=== PATIENT | female | born 1990 | race Caucasian/White ===

== ENCOUNTER 2024-10-16 09:47 | Outpatient (REF) | payer OTHER, SELFPAY ==
--- NOTE | ~2024-10-16 | XR_ITS ---
EXAMINATION: XR KNEE, LEFT CLINICAL INFORMATION: M25.562 - Pain in left knee COMPARISON: None available. TECHNIQUE: Three views of the left knee. FINDINGS: There is mild narrowing of the medial greater than lateral joint space. There are small marginal osteophytes 3 compartments. There are no soft tissue calcifications. There is a small amount joint fluid. XR/XR knee LT 3V IMPRESSION: Mild osteoarthritis. Electronically signed by: Nigel Delarosa MD 10/16/2024 10:09 AM EDT
== END 2024-10-16 09:48 | disposition home or self-care (01) ==
LOC: HO.HOSX 09:47
PROVIDERS: Visit Provider Orthopaedic Surgery
DX: S83.242A Other tear of medial meniscus, current injury, left knee, initial encounter (principal); M25.562 Pain in left knee; X58.XXXA Exposure to other specified factors, initial encounter; Z79.899 Other long term (current) drug therapy
CPT/HCPCS: 73562

== ENCOUNTER 2024-10-16 09:54 | Outpatient (AMB) | payer OTHER, SELFPAY ==
--- NOTE | 2024-10-16 10:06 | MHC.OFFVIS ---
Intake Visit Reasons: Left knee pain Intake Note: Nikia is a 34 year old female who presents with complaints of left knee pain. She describes her pain as sharp in nature. She has failed the last 6 weeks of conservative treatment which has included meloxicam, a knee brace and a home exercise program. Her symptoms began approximately 6 months ago. Allergies amoxicillin Allergy (Mild, Verified 10/16/24 10:09) Hives Medication List - Last Reconciled 10/16/24 by Frankie Mcmullen MD bupropion HCl XL 300 mg PO DAILY bupropion HCl XL 150 mg PO DAILY buspirone 5 mg PO BID Physical Exam Extrem Other: Left knee examination shows a minimal effusion, mild crepitus with range of motion, tenderness along her medial joint line, positive Garett's test Results Reviewed Results Reviewed: X-rays of the patient's left knee show mild diffuse joint space narrowing consistent with early osteoarthritis, no acute bony abnormalities Assessment & Plan Assessment & Plan (1) Tear of medial meniscus of left knee: Code(s): S83.242A - Other tear of medial meniscus, current injury, left knee, initial encounter Category: Medical (2) Left knee pain: Code(s): M25.562 - Pain in left knee Category: Medical Plan Mr. Roblero presents with left knee due to early osteoarthritis as well as possible tearing of her medial meniscus. Thus, I will send the patient for an MRI of her left knee for further evaluation. I will see her back once the MRI is completed to discuss the findings and treatment options. Feel free to call me at any time should questions regarding her orthopedic management arise. I spent 21 minutes in reviewing the patient's records and imaging studies, seeing the patient and documenting in the medical record. Orders: Orders XR knee LT 3V Today M25.562 - Pain in left knee MR knee LT wo con 10/17/24 S83.242A - Other tear of medial meniscus, current injury, left knee, initial encounter Coding Level of Care Code New Pt Level 3 (98637) Complex EM visit Add On G2211 Diagnoses Tear of medial meniscus of left knee S83.242A Left knee pain M25.562
--- OUTSIDE RECORDS SUMMARY | 2024-10-16 10:44 | XMS_ITS | Data Portability ---
Author Organization [facility], Main Office Address [address] [facility] [address] [place] [address] Care Team Providers Care Film Composer Name Role Phone VELMA PARRY Toxicologist OLIVERIO FULLER Primary Care Provider Assessment Encounter Date Assessment Date Assessment LastModified by Organization Details LastModified Time 05/31/2023 05/31/2023 This service was provided using telemedicine. Patient consented to video & audio visit Patient was located in the [facility]. Provider was located in the office. No other persons participated in the telemedicine visit except for the patient unless otherwise indicated here. Total time of visit was 10 minutes. pmadden Not available 05/31/2023 09:32:34 03/13/2024 03/13/2024 This service was provided using telemedicine. Patient consented to video & audio visit Patient was located in the [facility]. Provider was located in the office. No other persons participated in the telemedicine visit except for the patient unless otherwise indicated here. Total time of visit was 18 minutes. pmadden Not available 03/13/2024 16:13:32 10/02/2024 10/02/2024 This service was provided using telemedicine. Patient consented to telephone visit Patient was located other than home in the [facility]. Provider was located in the office. No other persons participated in the telemedicine visit except for the patient unless otherwise indicated here. Total time of visit was 11 minutes. pmadden Not available 10/02/2024 16:15:47 Plan of Treatment Reminders Order Date Submit Date Provider Last Modified By Organization Details Last Modified Time Details Appointments PE EST 2024 10:30A M Oliverio Fuller PA-C Not available Not available Not available Lab marcelinoami n D, 25-hyd cely, total, serum 2023 024 [email or web address], [address], [place], [address], 06/11/2024 10:31:51 HbA1c (hemog lobin A1c), blood 2023 024 [email or web address] (Centralized Electronic Ordering - All Locations), Patient Can Go To The Location Of Their Choice, [facility] 10/09/2024 09:54:00 lipid panel, serum 2023 024 [email or web address] (Centralized Electronic Ordering - All Locations), Patient Can Go To The Location Of Their Choice, [facility] 10/09/2024 09:54:00 CMP, serum or plasma 2023 024 [email or web address] (Centralized Electronic Ordering - All Locations), Patient Can Go To The Location Of Their Choice, [facility] 10/09/2024 09:54:00 Referral None record ed. Procedures None record ed. Surgeries None record ed. Imaging None record ed. Medication Orders Simpes se 0.15 mg-30 mcg (84)/1 0 mcg(7) tablet s,3 month dose pack 2024 025 [id number] [address] [facility] [place], [address], 10/02/2024 16:18:13 buprop ion HCl XL 150 mg 24 hr tablet , extend ed releas e 2024 025 [facility] #[id number], [address] [facility] [place], [address], 10/02/2024 16:18:13 meloxi cam 15 mg tablet 2024 025 [facility] #[id number], [address] [facility] [place], [address], 06/29/2024 09:05:24 buspir one 5 mg tablet 2023 024 [id number] [address] [facility] [place], [address], 03/13/2024 16:16:13 buprop ion HCl XL 450 mg 24 hr tablet , extend ed releas e 2023 024 [id number] [address] [facility] [place], [address], 03/15/2024 17:27:08 albute rol sulfat e HFA 90 mcg/ac tuatio n aeroso l inhale r [address] [id number] [address] [facility] [place], [address], 07/27/2023 10:10:07 flutic asone propio nell 50 mcg/ac tuatio n nasal spray, suspen le [id number] [address] [facility] [place], [address], 03/13/2024 15:28:32 buspir one 5 mg tablet 2023 024 [id number] [address] [place], [address], 05/31/2023 09:30:53 Patient TargetsNo targets recorded. Patient Instructions Encounter Date Encounter Id Patient Instructions Last Modified By Organization Details Last Modified Time 05/31/2023 [id number] prediabetes: car e instructions pmadden Not available 05/31/2023 09:34:24 eating healthy foods: care instructions pmadden Not available 05/31/2023 09:34:24 Medications (OTC , herbal therapies, supplements) reviewed and reconciled with patient and or caregiver, including potential side effects, drug interactions, instructions, and the consequences of not taking medication. Reviewed potential barriers to medication adherence, such as side effects from medication or cost of medication. pmadden Not available 05/31/2023 09:34:34 07/27/2023 [id number] cough: care instructions Not available 07/27/2023 10:08:36 seasonal allergies: care instructions Not available 07/27/2023 10:08:36 03/13/2024 [id number] prediabetes: car e instructions pmadden Not available 03/13/2024 16:16:10 eating healthy foods: care instructions pmadden Not available 03/13/2024 16:16:10 Medications (OTC , herbal therapies, supplements) reviewed and reconciled with patient and or caregiver, including potential side effects, drug interactions, instructions, and the consequences of not taking medication. Reviewed potential barriers to medication adherence, such as side effects from medication or cost of medication. pmadden Not available 03/13/2024 16:16:28 06/29/2024 [id number] knee pain or injury: care instructions Not available 06/29/2024 09:06:00 10/02/2024 [id number] prediabetes: car e instructions pmadden Not available 10/02/2024 16:18:06 eating healthy foods: care instructions pmadden Not available 10/02/2024 16:18:06 Medications (OTC , herbal therapies, supplements) reviewed and reconciled with patient and or caregiver, including potential side effects, drug interactions, instructions, and the consequences of not taking medication. Reviewed potential barriers to medication adherence, such as side effects from medication or cost of medication. Patient will follow up and keep appointment as scheduled. pmadden Not available 10/02/2024 16:18:51 Reason for Referral None Reported. Results Created Date Observation Date Name Description Value Unit Range Abnormal Flag Note LastModifiedBy Organization Detail LastModifiedTime 05/23/19 24 05/23/2023 HEMOG LOBIN A1C hemoglobin A1C 5.5 % (4.0-5 .6) MONIT ORING : In known diabe tic patie nts, hemog lobin A1c targe ts susan d be discu ssed with healt h care provi sarita. DIAGN OSTIC USE: The Ameri can Diabe gurmeet Assoc iatio n (ADA) and the World Healt h Organ izati on (WHO) recom mend the use of HbA1c to diagn ose diabe gurmeet using a thres hold of 6.5%. Patie nts who have an HbA1c betwe en 5.7% and 6.4% are consi dered at incre ased risk for devel oping diabe gurmeet in the mara [place]: False ly low HbA1c resul ts may be obser cecy in patie nts with hemol ytic anemi a, homoz ygous forms of abnor mal hemog lobin (e.g. SS, CC, SC), pregn gianluca, recen t blood loss or hemog lobin F great er than 7%. Fruct osami ne may be used as an alter nell test in these cases . REFER ENCE: ADA: Stand ards of Medic al Care in Diabe gurmeet 2019, The Journ al of Clini shivani and Appli ed Resea rc and Educa tion Volum e 43, Suppl ement 1 Not Available [facility] (Centralized Electronic Ordering - All Locations) Patient Can Go To The Location Of Their Choice, 05/23/2023 17:54:07 05/23/19 24 05/24/2023 COMPR EHENS RADHA METAB OLIC PANL glucose 85 mg/dL (70-99 ) Fasti ng Not Available [facility] (Centralized Electronic Ordering - All Locations) Patient Can Go To The Location Of Their Choice, 05/24/2023 04:43:15 05/23/1905/24/2023 COMPR EHENS RADHA METAB OLIC PANL BUN 13 mg/dL (6-20) Not Available [facility] (Centralized Electronic Ordering - All Locations) Patient Can Go To The Location Of Their Choice, 05/24/2023 04:43:15 05/23/1905/24/2023 COMPR EHENS RADHA METAB OLIC PANL creatinine 0.9 mg/dL (0.5-1 .0) Not Available [facility] (Centralized Electronic Ordering - All Locations) Patient Can Go To The Location Of Their Choice, 05/24/2023 04:43:15 05/23/1905/24/2023 COMPR EHENS RADHA METAB OLIC PANL sodium 138 mmol/ L (133-1 45) Not Available [facility] (Centralized Electronic Ordering - All Locations) Patient Can Go To The Location Of Their Choice, 05/24/2023 04:43:15 05/23/19 24 05/24/2023 COMPR EHENS RADHA METAB OLIC PANL potassium 4.4 mmol/ L (3.6-5 .2) Not Available [facility] (Centralized Electronic Ordering - All Locations) Patient Can Go To The Location Of Their Choice, 05/24/2023 04:43:15 05/23/1905/24/2023 COMPR EHENS RADHA METAB OLIC PANL chloride 104 mmol/ L (98-10 7) Not Available [facility] (Centralized Electronic Ordering - All Locations) Patient Can Go To The Location Of Their Choice, 05/24/2023 04:43:15 05/23/1905/24/2023 COMPR EHENS RADHA METAB OLIC PANL bicarbonate 23 mmol/ L (22-29 ) Not Available [facility] (Centralized Electronic Ordering - All Locations) Patient Can Go To The Location Of Their Choice, 05/24/2023 04:43:15 05/23/1905/24/2023 COMPR EHENS RADHA METAB OLIC PANL anion gap 11 (4-17) Not Available [facility] (Centralized Electronic Ordering - All Locations) Patient Can Go To The Location Of Their Choice, 05/24/2023 04:43:15 05/23/1905/24/2023 COMPR EHENS RADHA METAB OLIC PANL albumin 4.1 gm/dL (3.4-4 .8) Not Available [facility] (Centralized Electronic Ordering - All Locations) Patient Can Go To The Location Of Their Choice, 05/24/2023 04:43:15 05/23/1905/24/2023 COMPR EHENS RADHA METAB OLIC PANL calcium 8.9 mg/dL (8.6-1 0.5) Not Available [facility] (Centralized Electronic Ordering - All Locations) Patient Can Go To The Location Of Their Choice, 05/24/2023 04:43:15 05/23/1905/24/2023 COMPR EHENS RADHA METAB OLIC PANL bilirubin,to andres 0.4 mg/dL (0-1.2 ) Not Available [facility] (Centralized Electronic Ordering - All Locations) Patient Can Go To The Location Of Their Choice, 05/24/2023 04:43:15 05/23/1905/24/2023 COMPR EHENS RADHA METAB OLIC PANL total protein 6.8 gm/dL (6.2-8 .2) Not Available [facility] (Centralized Electronic Ordering - All Locations) Patient Can Go To The Location Of Their Choice, 05/24/2023 04:43:15 05/23/19 24 05/24/2023 COMPR EHENS RADHA METAB OLIC PANL Ag ratio 1.5 Not Available [facility] (Centralized Electronic Ordering - All Locations) Patient Can Go To The Location Of Their Choice, 05/24/2023 04:43:15 05/23/19 24 05/24/2023 COMPR EHENS RADHA METAB OLIC PANL AST 12 U/L (0-32) Not Available [facility] (Centralized Electronic Ordering - All Locations) Patient Can Go To The Location Of Their Choice, 05/24/2023 04:43:15 05/23/1905/24/2023 COMPR EHENS RADHA METAB OLIC PANL alk phos 80 U/L (35-10 4) Not Available [facility] (Centralized Electronic Ordering - All Locations) Patient Can Go To The Location Of Their Choice, 05/24/2023 04:43:15 05/23/1905/24/2023 COMPR EHENS RADHA METAB OLIC PANL ALT 15 U/L (0-33) Not Available [facility] (Centralized Electronic Ordering - All Locations) Patient Can Go To The Location Of Their Choice, 05/24/2023 04:43:15 05/23/1905/24/2023 COMPR EHENS RADHA METAB OLIC PANL estimated GFR creatinine 87 mL/mi n/1.7 3_M2 Creat inine based estim ated glome rular filtr ation (eGFR ) in adult s is calcu lated using the Natio nal Kidne y Found ation recom frank d 2020 CKD-E PI equat ion. Estim ates GFR from serum creat inine , age and sex. Not Available [facility] (Centralized Electronic Ordering - All Locations) Patient Can Go To The Location Of Their Choice, 05/24/2023 04:43:15 05/23/1905/24/2023 LIPID PANEL cholesterol, total 161 mg/dL (<200) Not Available [facility] ([facility] Order[facility] - All Locations) Patient Can Go To The Location Of Their Choice, 05/24/2023 04:43:16 05/23/1905/24/2023 LIPID PANEL triglyceride 108 mg/dL (<150) Fasti ng Not Available [facility] (Centralized Electronic Ordering - All Locations) Patient Can Go To The Location Of Their Choice, 05/24/2023 04:43:16 05/23/1905/24/2023 LIPID PANEL HDL chol 42 mg/dL (>39) Not Available [facility] (Centralized Electronic Ordering - All Locations) Patient Can Go To The Location Of Their Choice, 05/24/2023 04:43:16 05/23/1905/24/2023 LIPID PANEL LDL cholesterol, calculated 97 mg/dL (0-130 ) Not Available [facility] (Centralized Electronic Ordering - All Locations) Patient Can Go To The Location Of Their Choice, 05/24/2023 04:43:16 05/23/1905/24/2023 LIPID PANEL non HDL cholesterol (calc) 119 mg/dL (<160) Not Available [facility] ([facility] Ordering - All Locations) Patient Can Go To The Location Of Their Choice, 05/24/2023 04:43:16 08/11/1908/10/2024 XR, knee, 3 view Knee 3 Views Left Reason : Pain for a month, no trauma COMPAR MELO: None. FINDIN GS: There is no eviden ce of acute or healin g fractu re, disloc ation or bone lesion . Minima l spurri ng at the superi or pole of the patell a. No osteoc hondra l defect s or intra- articu lar loose bodies . No eviden ce of joint effusi on. IMPRES LE: Minima l osteoa rthrit is at the patell ofemor al joint. I have person ally review ed the images and I agree with this report . WSN: [id number] Orderi ng Physic warner: Keshav Fuller Dictat ed By: Marisol Tran MD Dictselam ed Date/T ugo: 6:39 pm Review ed By: Maury baez MD, Tali Kiser Signed By: Tali Mendiola ra, MD Signed Date/T ugo: 6:44 pm Transc ribed By: JENNIE Transc ribed Date/T ugo: 4:20 pm Patien t Class: Outpat ient [facility] (Outpt Imaging) [address], [place], [address], 10/02/2024 16:02:26 08/11/1908/10/2024 XR, knee, 3 view No observ ation record ed. [facility] Orders [address], [place], [address], 10/02/2024 16:02:26 Result Notes Documentation Provider Name and Address Organization Details Recorded Time Xr, Knee, 3 View : Knee 3 Views Left Reason: Pain for a month, no trauma COMPARISON: None. FINDINGS: There is no evidence of acute or healing fracture, dislocation or bone lesion. Minimal spurring at the superior pole of the patella. No osteochondral defects or intra-articular loose bodies. No evidence of joint effusion. 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 I have personally reviewed the images and I agree with this report. WSN: [id number] Ordering Physician: Kenisha Fuller Dictated By: Marisol Tran MD Dictated Date/Time: 08/10/24 6:39 pm Reviewed By: Tali Shaw MD Signed By: Tali Shaw MD Signed Date/Time: 08/10/24 6:44 pm Transcribed By: JENNIE Transcribed Date/Time: 08/10/24 4:20 pm Patient Class: Outpatient Oliverio Fuller PA-C [address] [facility] [address], [place], [address], [facility] 10/02/2024 16:02:26 Problems Name Problem SNOMED Code Status Onset Date Resolution Date Notes Provider Name and Address Organization Details Recorded Time Body mass index 40+ - severely obese 107990696 Completed 12/07/2018 Removal Reason: dx changed Leonor ferreira, [facility] 9 12:04:29 Tinea pedis 8128266 Completed 01/28/2022 Oliverio Fuller PA-C [address], [place], [address] , [facility] 2 17:13:30 Liver function tests outside referenc e range 403119279 Completed 01/28/2022 Oliverio Fuller PA-C [address], [place], [address] , [facility] 2 17:12:44 Serum thyroid stimulat ing hormone level outside referenc e range 387630520 Completed 01/28/2022 Oliverio Fuller PA-C [address], [place], [address] , [facility] 2 17:13:15 Inflamma tion of sacroili ac joint 04134019 Completed 12/04/2015 Dionisio Albert MD [address], [place], [address] , [facility] 6 11:40:46 Strain of trapeziu s muscle 446629566 Completed 12/04/2015 Dionisio Albert MD [address], [place], [address] , [facility] 6 11:40:58 Onychomy cosis 329748383 Completed 01/28/2022 Oliverio Fuller PA-C [address], [place], [address] , [facility] 2 17:13:01 History of clinical finding in subject 609085131 Completed 12/04/2015 Dionisio Albert MD [address], [place], [address] , [facility] 6 11:40:52 Obesity 591951955 Completed 12/04/2015 Dionisio Albert MD [address], [place], [address] , [facility] 6 11:40:42 Joint pain in ankle and foot Completed 12/04/2015 Dionisio Albert MD [address] [facility] [address], [place], [address] , [facility] 6 11:40:49 Acne [id number] Completed 201211/05/2013 IMPRESSI ON: MODERATE , POSSIBLY SECONDAR Y TO CURRENT CONTROL METHOD. WILL TRY TOPICAL ABX AND REASSESS AT F/U.; RECORDED 08/18/19 13 9:36AM BY HAJA MILLSATI ON/ADDEN DUM Not Available [facility] 4 05:24:53 Tobacco user [id number] Completed 201211/05/2013 RECORDED 08/18/19 13 9:36AM BY HAJA MILLSATI ON/ADDEN DUM Not Available [facility] 4 05:24:53 Malaise and fatigue 071153488 Completed 201211/05/2013 IMPRESSI ON: SCREEN FOR COMMON METABOLI C ETIOLOGI ES AND EVALUATE FURTHER AT F/U IF LABS NL AND SYMPOTOM S PERSIST. ; RECORDED 08/18/19 13 9:36AM BY HAJA MILLSATI ON/ADDEN DUM Not Available [facility] 4 05:24:53 Adult health examinat ion Completed 201211/05/2013 IMPRESSI ON: IMMUNIZA TION STATUS REPORTED LY UTD, WILL CONFIRM WHEN PRIOR RECORDS AVAILABL E. WILL SCREEN BASED ON RISK FACTORS. REGULAR DENTAL CARE AND SEATBELT USE ADVISED. DISTRACT ED DRIVING DISCUSSE D. ROUTINE CREDIT PRODUCTS OFFICER CARE UTD VIA DR PARRY; RECORDED 08/18/19 13 9:36AM BY YANI MILLS ON/ADDEN DUM Not Available [facility] 4 05:24:53 Acne [id number] Completed 201210/09/2013 IMPRESSI ON: MODERATE , POSSIBLY SECONDAR Y TO CURRENT CONTROL METHOD. WILL TRY TOPICAL ABX AND REASSESS AT F/U.; RECORDED 08/18/19 13 9:36AM BY HAJA MILLSATI ON/ADDEN DUM Not Available [facility] 4 14:07:55 Tobacco user [id number] Completed 201210/09/2013 RECORDED 08/18/19 13 9:36AM BY GERONIMO DUGAN I ANNOTATI ON/ADDEN DUM Not Available [facility] 4 14:07:55 Malaise and fatigue [id number] Completed 201210/09/2013 IMPRESSI ON: SCREEN FOR COMMON METABOLI C ETIOLOGI ES AND EVALUATE FURTHER AT F/U IF LABS NL AND SYMPOTOM S PERSIST. ; RECORDED 08/18/19 13 9:36AM BY GERONIMO DUGAN I ANNOTATI ON/ADDEN DUM Not Available [facility] 4 14:07:55 Adult health examinat ion Completed 201210/09/2013 IMPRESSI ON: IMMUNIZA TION STATUS REPORTED LY UTD, WILL CONFIRM WHEN PRIOR RECORDS AVAILABL E. WILL SCREEN BASED ON RISK FACTORS. REGULAR DENTAL CARE AND SEATBELT USE ADVISED. DISTRACT ED DRIVING DISCUSSE D. ROUTINE CREDIT PRODUCTS OFFICER CARE UTD VIA DR PARRY; RECORDED 08/18/19 13 9:36AM BY GERONIMO DUGAN I ANNOTATI ON/ADDEN DUM Not Available [facility] 4 14:07:55 Atypical squamous cells of undeterm ined signific ance on cervical Papanico laou smear 430359501 Active 2016 Dionisio Albert MD [address], [place], [address] , [facility] 7 00:27:27 Severe major depressi on without psychoti c features 54934717 Completed 201801/28/2022 Oliverio Fuller PA-C [address], [place], [address] , [facility] 2 17:13:22 Obese [id number] Completed 201801/28/2022 Oliverio Fuller PA-C [address], [place], [address] , [facility] 2 17:12:50 Generali zed anxiety disorder 97132343 Active 2018 Dionisio Albert MD [address], [place], [address] , [facility] 9 11:36:44 Exposure to SARS-CoV -2 Completed 201909/22/2020 Removal Reason: Problem marked historic al by user [email or web address] 5 from the COVID-19 watch flag Guerita Ward hanna, [facility] 1 10:55:16 Lelia [id number] Active 2020 Oliverio Fuller PA-C [address], [place], [address] , [facility] 1 17:05:08 Prediabe gurmeet 035057816 Active 2021 Oliverio Fuller PA-C [address], [place], [address] , [facility] 2 10:18:42 Seasonal allergic rhinitis 838122882 Active 2023 Kenisha Fuller PA-C [address], [place], [address] , [facility] 4 10:04:21 Problem Notes None recorded. Procedures Surgical History Date Name Laterality Status Provider Name and Address Organization Details Recorded Time 10/12/19 23 Date of Last Pap Smear completed Rhonda Morillo [facility] 05/05/2023 14:04:47 03/20/20 15 Caesarean Section completed Dionisio Albert MD [address], [place], [address], [facility] 04/01/2015 21:40:03 Arthroscopic Surgery completed Bee James MA [facility] 12/04/2015 11:09:10 thumb surgery completed Ivon caldera [place] [facility] 08/28/2019 13:33:25 Imaging Results None recorded. Procedure Notes None recorded. Medical Equipment None Reported. Allergies Allergen ID Allergen Name Allergen Category Reaction Reaction Severity Criticality Documentation Date Start Date Code Code System Note Provider Name and Address Organization Details Recorded Time 25046 amoxicill in medicatio n rash moderate Not available 11/01/2017 723 RxNorm Lion gibbs MD [address] [facility] [address], [place], [address], [facility] 8 18:23:25 Medications Name Sig Start Date Stop Date Status Note LastModified by Organization Details LastModified Time boostrix 5-2.5-18.5 susp active Not Available Not Available Not Available oxycodone hcl 5 mg tabs active Not Available Not Available Not Available docqlace 100 mg caps active Not Available Not Available Not Available methocarba mol 500 mg tabs active Not Available Not Available Not Available xulane 150-35 mcg/24hr ptwk active Not Available Not Available Not Available ibuprofen 600 mg tabs active Not Available Not Available Not Available multivitam in tablet Take 1 tablet every day by oral route. active Not Available Not Available No t Available cyclobenza etienne 10 mg tablet Take 1 tablet every day by oral route for 7 days. 11/01 completed Not Available Not Available Not Available buspirone 5 mg tablet TAKE 1 TABLET TWICE A DAY BY ORAL ROUTE FOR 30 DAYS. 2024 active Not Available Not Available Not Avai lable bupropion HCl SR 150 mg tablet,12 hr sustained- release Take 1 tablet twice a day by oral route. 12/21 completed Not Available Not Available Not Available azithromyc in 250 mg tablet 09/26 completed Not Available Not Available Not Available ibuprofen 800 mg tablet TAKE 1 TABLET BY MOUTH EVERY 8 HOURS FOR PAIN FOR 7 DAYS 07/26 completed Not Available Not Available Not Available meloxicam 15 mg tablet TAKE 1 TABLET BY MOUTH EVERY DAY FOR 30 DAYS 2024 active Not Available Not Available Not Avai lable prednisone 20 mg tablet TAKE 2 TABLETS BY MOUTH DAILY FOR 5 DAYS 06/29 completed Not Available Not Available Not Available Zyrtec 10 mg tablet Take 1 tablet every day by oral route. active Not Available Not Available No t Available ciclopirox 8 % topical solution APPLY THIN LAYER TO THE AFFECTED NAILS DAILY 06/29 completed Not Available Not Available Not Available amoxicilli n 875 mg tablet 02/21 completed Not Available Not Available Not Available benzonatat e 100 mg capsule 12/21 completed Not Available Not Available Not Available econazole nitrate 1 % topical cream APPLY TWICE DAILY TO FEET FOR 3 WEEKS UNTIL CLEARED, THEN ONCE WEEKLY FOR MAINTENA NCE active Not Available Not Available No t Available cephalexin 500 mg capsule TAKE 1 CAPSULE BY MOUTH TWICE A DAY FOR 10 DAYS 05/05 completed Not Available Not Available Not Available naproxen sodium 550 mg tablet 12/03 completed Not Available Not Available Not Available polymyxin B sulfate 10,000 unit-trime thoprim 1 mg/mL eye drops INSTILL 1 DROP INTO AFFECTED EYE(S) BY OPHTHALM IC ROUTE three times daily 04/19 completed Not Available Not Available Not Available metronidaz ole 0.75 % topical cream APPLY TO THE FACE ONCE TO TWICE DAILY FOR MAINTENA NCE active Not Available Not Available No t Available Banophen 25 mg capsule Take 2 capsules every 4 hours by oral route as needed. 02/21 completed Not Available Not Available Not Available prednisolo ne 15 mg/5 mL oral solution active Not Available Not Available Not Available diclofenac sodium 50 mg tablet,del ayed release TAKE 1 TABLET BY MOUTH TWICE A DAY WITH FOOD 01/01 completed Not Available Not Available Not Available methylpred nisolone 4 mg tablets in a dose pack 1 dose pack over 6 days 02/21 completed Not Available Not Available Not Available albuterol sulfate HFA 90 mcg/actuat ion aerosol inhaler INHALE 2 PUFFS EVERY 4 TO 6 HOURS NEEDED FOR SHORTNES S OF BREATH OR FOR WHEEZE active Not Available Not Available No t Available hydrocorti sone 2.5 % topical ointment APPLY TO THE AFFECTED AREA ON FACE TWICE DAILY FOR ONE WEEK, BREAK ONE WEEK. REPEAT NEEDED 06/29 completed Not Available Not Available Not Available ketoconazo le 2 % topical cream APPLY TO THE AFFECTED AREA(S) BY TOPICAL ROUTE ONCE DAILY 12/03 completed Not Available Not Available Not Available fluticason e propionate 50 mcg/actuat ion nasal spray,susp ension INSTILL 2 SPRAYS BY INTRANAS AL ROUTE EVERY DAY 2023 active NEEDED Not Available Not Available Not Available clotrimazo le 1 % topical cream APPLY TO THE AFFECTED AND SURROUND ING AREAS OF SKIN BY TOPICAL ROUTE 2 TIMES PER DAY IN THE MORNING AND EVENING x 5- 7 days until better 08/27 completed Not Available Not Available Not Available naproxen 500 mg tablet TAKE 1 TABLET BY MOUTH TWICE A DAY NEEDED 03/13 completed Not Available Not Available Not Available Benzaclin 1 %-5 %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 this rx in ~ 10 days 11.22 - stable, manuel/phq down -- cont med as dir 2.24 - severe on manuel, cont bup 300mg qd, rec see therapist, consider trial of buspar 5mg - start qd, then advance to bid in several days - confirm c pharmacist is okay to take 3.24 - sig better on buspar - tolerating well - cont meds as dir Prediabetes [id number] R7 3.03 Nikia - unfortunat zenaida you have evidence of pre-diabet es - rec. less sugar intake (candy, ice cream, soda/juice , etc), follow a low carb diet and get plenty of aerobic exercise to help you to lose weight. Pat 3.24 - a1c down from 5.7 to 5.5 - pt states is eating healthier/ buying less snacks for dtr/hersel f - helping both to lose a little wt over the past few months [id number] Pham Crandall MD Main Office [address] [facility] [address] [place] [address] 07/27/2023 08:38:37 07/27/2023 09:15:54 Seasonal allergic rhinitis [id number] J30.2 recommend to continue Zyrtec 10 mg and add fluticason e spray. Cough [id number] R05.9 reactive airway component of seasonal allergy. Recom to try albuterol inhaler prn. If symptoms persist, montelukas t can be added on and continue antihistam ine. Dysfunctio n of left eustachian tube [id number] 532734 H69.92 recommend to add otc decongesta nt Sudafed 30-60 mg every 4-6 hrs avoiding bedtime. [id number] Dioniiso Albert MD [facility] [address] [facility] [address] [facility] [place] [address] 03/13/2024 14:29:49 03/16/2024 10:06:37 Generalized anxiety disorder 71590640 F41.1 Recurrent symptoms since stopping buproprion over 1 year ago. Will resume as she tolerated it well. Titrate dose as tolerated to goal symptom control. Call with any untoward effects. 10.22 - tolerating well, will increase dose - just refilled, so take 2 tabs -- then fill this rx in ~ 10 days 11.22 - stable, manuel/phq down -- cont med as dir 2.24 - severe on manuel, cont bup 300mg qd, rec see therapist, consider trial of buspar 5mg - start qd, then advance to bid in several days - confirm c pharmacist is okay to take 3.24 - sig better on buspar - tolerating well - cont meds as dir 12.24 - doing well on buspar - cont as dirbut c/o decrease in focus/atte ntion - she ?'s if has adhd as well - has been on bup 300mg x 2 yrs - will trial increase in med to 450mg qd to see if it has good effect on adhd sxs too Prediabetes 031994586 R7 3.03 Nikia - unfortunat zenaida you have evidence of pre-diabet es - rec. less sugar intake (candy, ice cream, soda/juice , etc), follow a low carb diet and get plenty of aerobic exercise to help you to lose weight. Pat 3.24 - a1c down from 5.7 to 5.5 - pt states is eating healthier/ buying less snacks for dtr/hersel f - helping both to lose a little wt over the past few months 12.24 - recheck Hyperlipidemia 76920986 E78.5 Vitamin D deficiency [id number] E55.9 [id number] Lion Ruth MD Main Office [address] [place] [address] 06/29/2024 08:31:18 06/29/2024 09:12:09 Tendinitis of left patellar tendon [id number] 52453 M76.52 Likely overuse tendonitis of the lateral knee. recommend meloxicam 15 mg daily for 204 weeks plus tylenol prn pain. Icing 15 min twice daily and compressio n with elastic brace. F/u as needed. If no improvemen t in 203 weeks with this therapy, imaging should be considered . [id number] Dionisio Albert MD [facility] [address] [place] [address] 10/02/2024 12:57:03 10/02/2024 16:22:55 Generalized anxiety disorder 61135947 F41.1 Recurrent symptoms since stopping buproprion over 1 year ago. Will resume as she tolerated it well. Titrate dose as tolerated to goal symptom control. Call with any untoward effects. 10.22 - tolerating well, will increase dose - just refilled, so take 2 tabs -- then fill this rx in ~ 10 days 11.22 - stable, manuel/phq down -- cont med as dir 2.24 - severe on manuel, cont bup 300mg qd, rec see therapist, consider trial of buspar 5mg - start qd, then advance to bid in several days - confirm c pharmacist is okay to take 3.24 - sig better on buspar - tolerating well - cont meds as dir 12.24 - doing well on buspar - cont as dirbut c/o decrease in focus/atte ntion - she ?'s if has adhd as well - has been on bup 300mg x 2 yrs - will trial increase in med to 450mg qd to see if it has good effect on adhd sxs too 7.25 - bup 450mg tab not covered, so cont 300&150fee ling better in general on bup & buspar, manuel elevated just do to work stress - but in general better Prediabetes [id number] R7 3.03 Nikia - unfortunat zenaida you have evidence of pre-diabet es - rec. less sugar intake (candy, ice cream, soda/juice , etc), follow a low carb diet and get plenty of aerobic exercise to help you to lose weight. Pat 3.24 - a1c down from 5.7 to 5.5 - pt states is eating healthier/ buying less snacks for dtr/hersel f - helping both to lose a little wt over the past few months 12.24 - recheck 7.25 - encouraged pt to check outstandin g labs as directed Uses contraception [id number] Z78.9 pending see production machinist next month, will refill hormones in the interim (has been on same dose x many yrs) Health Concerns Section Related Observation LastModified by Organization Detai ls LastModified Time None Recorded Concern Status LastModified by Organization Details LastModified Time None Recorded Advance Directives Directive Y: Silva Payers Insurance Date Sequence Insurance Name Policy Number Policy Doss Covered Member ID Doss Member ID Guarantor Name 10/02/2024 1 [facility] - [facility] - MEDICAID ESSENTIAL (MEDICAID HMO) [id number] Nikia Vincent [id number] Johny Decker 10/02/2024 1 [facility] PUBLIC PLANS [facility] TYPE I (HMO) Nikia Vincent [id number] Johny Decker 09/22/2020 1 [facility] ([facility] [id number] Johny Vincent [id number] Johny Decker 10/05/2017 1 [facility] ([facility] Johny Decker [id number] Johny Decker 10/02/2024 1 [facility] NET PLAN (MEDICAID HMO) [id number] Nikia Payanor [id number] Johyn Decker 10/02/2024 2 [facility] NET PLAN (MEDICAID HMO) [id number] Nikia Vincent [id number] Johny Decker 10/05/2017 1 [facility] ([facility]) [id number] Johny Vincent [id number] Johny Decker 10/09/2024 1 [facility] ([facility]) [id number] Nikia Vincent [id number] Johny Decker 10/02/2024 1 [place] [facility] Nikia Payanor [id number] Johny Decker 10/02/2024 1 [facility] BE HEALTHY - MEDICAID ESSENTIAL (MEDICAID HMO) [id number] Nikia Vincent [id number] Johny Decker 10/02/2024 2 [place] [facility] Nikia Vincent [id number] 1 Johny Decker Notes Date Note Type Note Provider Name and Address Organization Details Recorded Time 05/31/2023 text/html Anxiety/Depressi onR eported bypatient.Quality:s ymptoms improved Severity:denies suicidal ideations Context:major life stressors(handling these better lately) Associated Symptoms:denies homicidal ideations TH for f/u visitreviewed labs c ptfeeling sig better - less stressed/anxious/wo rried on buspar, tolerating well w/o SE Oliverio Fuller PA-C [address] [address], [place], [address], [facility] 05/31/2023 09:35:04 07/27/2023 text/html 33 year old fema le with h/o seasonal allergies c/o L. ear blocked , fatigue , some cough with shortness of breath. No h/o asthma. Started taking antihistamine Zyrtec 10 mg 3 days ago. Tested neg for COVID. Denies fever, chills, sinus pain. Kenisha Fuller PA-C [address] [address], [place], [address], [facility] 07/27/2023 10:13:04 03/13/2024 text/html Anxiety/Depressi onR eported bypatient.Quality:s ymptoms improved Severity:denies suicidal ideations Context:no major life stressors Associated Symptoms:denies homicidal ideations TH f/u visitlast seen by me 3.24 - rev. 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 Initially intermittent , now last 2 weeks constant. Worse on ambulation. Pt. reports swelling in the lateral knee area and feels somewhat tight on flexion, but not all the time. NO redness. Denies h/o injury, fall, overuse. NO fever or chills. Pt. took NSAIDS intermittently. Kenisha Fuller PA-C [address] [address], [place], [address], [facility] [place] 06/29/2024 09:40:38 10/02/2024 text/html Anxiety/Depressi onR eported bypatient.Quality:s ymptoms improved Severity:denies suicidal ideations Context:major life stressors;trouble at work Associated Symptoms:denies homicidal ideations TH f/u visitlast seen by me 03.13.24 - rev. note Oliverio Fuller PA-C [address] [address], [place], [address], [facility] 10/02/2024 16:19:16 OBGyn Episode No OBEpisode recorded.
== END 2024-10-16 10:23 | disposition home or self-care (01) ==
LOC: HO.HOS 09:54
PROVIDERS: PCP Pediatrics; Visit Provider Orthopaedic Surgery
DX: S83.242A Other tear of medial meniscus, current injury, left knee, initial encounter (principal); M25.562 Pain in left knee
CPT/HCPCS: 99203; G2211

== ENCOUNTER → 2024-10-16 10:00 | Outpatient (BNV) | payer OTHER, SELFPAY | PROVIDERS: Visit Provider Radiology Diagnostic Radiology | DX: M17.12 Unilateral primary osteoarthritis, left knee (principal) | CPT/HCPCS: 73562 ==

== ENCOUNTER → 2024-11-02 16:09 | Outpatient (BNV) | payer OTHER, SELFPAY | PROVIDERS: PCP Pediatrics; Visit Provider Radiology Diagnostic Radiology | DX: M25.462 Effusion, left knee (principal); S83.242A Other tear of medial meniscus, current injury, left knee, initial encounter | CPT/HCPCS: 73721 ==

== ENCOUNTER 2024-11-02 16:26 | Outpatient (REF) | payer OTHER, SELFPAY ==
--- NOTE | ~2024-11-02 | MR_ITS ---
EXAMINATION: MRI LEFT KNEE WITHOUT CONTRAST HISTORY: S83.242A - Other tear of medial meniscus, current injury, left knee, initial... COMPARISON: Correlation is made with plain films of the left knee dated 10/16/2024. TECHNIQUE: Coronal T1 and fat-suppressed proton density, sagittal proton density and fat-suppressed proton density, and axial fat suppressed T2 weighted MR images of the left knee were obtained. FINDINGS: Bone marrow: There is heterogeneous bone marrow signal intensity in the metaphyses of the distal femur and proximal tibia, likely secondary to red marrow reconversion. Joint effusion: There is a small suprapatellar joint effusion. Moreno's cyst: There is no Moreno's cyst. Articular cartilage: There is mild osteoarthritis of the medial and patellofemoral compartments with cartilage loss and subchondral marrow changes. Muscles/soft tissues: The visualized muscles demonstrate normal signal intensity. Anterior cruciate ligament: Intact Posterior cruciate ligament: Intact Medial collateral ligament: Intact Lateral collateral ligament: Intact Medial meniscus: Intact Lateral meniscus: Intact Flexor mechanism: The popliteus, gastrocnemius, and hamstring tendons are intact. Quadriceps tendon: Intact Patellar tendon: Intact Patellar retinacula: Intact MR/MR knee LT wo con IMPRESSION: Mild osteoarthritis of the medial and patellofemoral compartments. Small joint effusion. Otherwise unremarkable MRI of the left knee. Electronically signed by: Mitchell Maldonado MD 11/05/2024 07:26 AM EDT
== END 2024-11-02 16:27 | disposition home or self-care (01) ==
LOC: HO.MRI 16:26
PROVIDERS: PCP Pediatrics; Visit Provider Orthopaedic Surgery
DX: S83.242A Other tear of medial meniscus, current injury, left knee, initial encounter (principal)
CPT/HCPCS: 73721

== ENCOUNTER 2024-12-19 14:34 | Outpatient (AMB) | payer OTHER, SELFPAY ==
--- NOTE | 2024-12-19 14:39 | MHC.OFFVIS ---
Vital Signs 12/19/24 14:41 Height 5 ft 4 in Weight 260 lb BMI 44.6 Intake Visit Reasons: OV-Lt knee MRI review Intake Note: Nikia is a 34 year old female who presents today as a MRI Review of her Left knee,11/02/24. At today's visit she states that the left knee pain is feeling better and only flairs up once in a while now. The patient is no longer wearing her knee brace. She does not take any medicines for her discomfort currently. Allergies amoxicillin Allergy (Mild, Verified 12/19/24 14:42) Hives Medication List - Last Reconciled 12/19/24 by Frankie Mcmullen MD bupropion HCl XL 300 mg PO DAILY bupropion HCl XL 150 mg PO DAILY buspirone 5 mg PO BID Physical Exam Vital Signs: BMI result Body Mass Index 44.6 Extrem Other: Left knee examination shows a minimal effusion, minimal crepitus with range of motion, minimal discomfort with range of motion, no instability Results Reviewed Results Reviewed: MRI of the patient's left knee shows mild degenerative changes within the patellofemoral joint, no evidence of meniscus or ligamentous injury Assessment & Plan Assessment & Plan (1) Left knee pain: Code(s): M25.562 - Pain in left knee Category: Medical Plan Ms. Roblero presents with intermittent left knee discomfort due to early osteoarthritis. I had a lengthy discussion with the patient regarding the treatment options. At this point the patient's symptoms are tolerable to her. She will continue with her activity modifications. She will follow up with me on an as-needed basis should her symptoms worsen in any way. Feel free to call me at any time should questions regarding her orthopedic management arise. I spent 22 minutes in reviewing the patient's records and imaging studies, seeing the patient and documenting in the medical record. Coding Level of Care Code Est Pt Level 3 (88961) Complex EM visit Add On G2211 Diagnoses Left knee pain M25.562
[2024-12-19 14:41] VITALS: BMI 44.6
== END 2024-12-19 14:58 | disposition home or self-care (01) ==
PROVIDERS: PCP Pediatrics; Visit Provider Orthopaedic Surgery
DX: M25.562 Pain in left knee (principal)
CPT/HCPCS: 99213; G2211